=== PATIENT | female | born 1995 | race Hispanic/Latino ===

== ENCOUNTER 2020-01-19 13:55 | Outpatient (CLI) | payer OTHER, SELFPAY ==
--- NOTE | ~2020-01-19 | US_ITS ---
EXAMINATION: US pelvic complete w TV DATE: 01/19/2020 14:52 INDICATION: Pelvic evaluation prior to placement of IUD. Comparison:No prior studies TECHNIQUE: Multiple transabdominal and endovaginal sonographic images of the pelvis performed. FINDINGS: The uterus measures 7.3 x 4.5 x 3 cm. Uterus is anteroverted. The endometrial complex measu res 3 mm. The right ovary measures 5.8 x 4.7 x 3.9 cm and the left ovary measures 1.9 x 2 x 1.2 cm. There is a simple 5.3 cm right ovarian cyst. There is no free fluid in the pelvis. There are no abnormal masses seen on either side. IMPRESSION: 1. Simple 5.3 cm right ovarian cyst. Reviewed, dictated and finalized at location B. 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
== END 2020-01-19 13:56 | disposition home or self-care (01) ==
DX: Z30.430 Encounter for insertion of intrauterine contraceptive device (principal); N83.201 Unspecified ovarian cyst, right side
CPT/HCPCS: 76830; 76856